=== PATIENT | female | born 1985 | race Hispanic/Latino ===

== ENCOUNTER 2016-11-14 19:02 | Emergency (ER) | payer MEDICAID ==
[2016-11-15] MEDS ORDERED: NORCO 5/325 PO ONE (00:19)
--- NOTE | 2016-11-15 00:23 | Emergency Department Report ---
ED ENT HPI - General Chief complaint: Dental/Oral Stated complaint: TOOTHACE Time Seen by Provider: 11/15/16 00:18 Source: patient Mode of arrival: Wheelchair Limitations: No Limitations - History of Present Illness Initial comments: 31-year-old female comes in with complaint of toothache for greater than 1 week. She admits that she has some pretty bad teeth that have been broken down to the gums. She cannot recall when the last time she seen a dentist. She denies any fever no chills. MD complaint: tooth pain - Related Data Previous Rx's Medication Instructions Recorded Last Taken Type Ciprofloxacin HCl [Ciprofloxacin 500 mg PO Q12HR #20 tab 01/17/16 Unknown Rx TAB] Ibuprofen [Motrin 600 MG tab] 600 mg PO Q8H PRN #30 tablet 01/17/16 Unknown Rx Clindamycin [Clindamycin CAP] 300 mg PO Q8H #30 cap 11/15/16 Unknown Rx Allergies Allergy/AdvReac Type Severity Reaction Status Date / Time No Known Allergies Allergy Unverified 01/16/16 21:14 ED Dental HPI - General Chief complaint: Dental/Oral Stated complaint: TOOTHACE Time Seen by Provider: 11/15/16 00:18 Source: patient Mode of arrival: Wheelchair Limitations: No Limitations - Related Data Previous Rx's Medication Instructions Recorded Last Taken Type Ciprofloxacin HCl [Ciprofloxacin 500 mg PO Q12HR #20 tab 01/17/16 Unknown Rx TAB] Ibuprofen [Motrin 600 MG tab] 600 mg PO Q8H PRN #30 tablet 01/17/16 Unknown Rx Clindamycin [Clindamycin CAP] 300 mg PO Q8H #30 cap 11/15/16 Unknown Rx Allergies Allergy/AdvReac Type Severity Reaction Status Date / Time No Known Allergies Allergy Unverified 01/16/16 21:14 ED Review of Systems ROS: Stated complaint: TOOTHACE Other details as noted in HPI Constitutional: denies: chills, fever ENT: throat pain ED Past Medical Hx - Past Medical History Additional medical history: Scoliosis - Surgical History Additional Surgical History: back - Social History Smoking Status: Never Smoker Substance Use Type: None - Medications Home Medications: Home Medications Medication Instructions Recorded Confirmed Last Taken Type Ciprofloxacin HCl [Ciprofloxacin 500 mg PO Q12HR #20 tab 01/17/16 Unknown Rx TAB] Ibuprofen [Motrin 600 MG tab] 600 mg PO Q8H PRN #30 tablet 01/17/16 Unknown Rx Clindamycin [Clindamycin CAP] 300 mg PO Q8H #30 cap 11/15/16 Unknown Rx ED Physical Exam - General Limitations: No Limitations General appearance: alert, in no apparent distress - Head Head exam: Present: atraumatic, normocephalic - Eye Eye exam: Present: normal appearance - Expanded ENT Exam Expanded Teeth exam: Present: fractured tooth # (multiple teeth eroded to the gums), gingival enlargement Throat exam: Negative: tonsillar erythema, tonsillomegaly - Neck Neck exam: Present: normal inspection, full ROM. Absent: tenderness ED Course Vital Signs 11/14/16 11/14/16 20:05 23:11 Temperature 98.6 F 98.4 F Pulse Rate 80 94 H Respiratory 18 18 Rate Blood Pressure 127/76 Blood Pressure 122/79 [Left] O2 Sat by Pulse 100 93 Oximetry ED Medical Decision Making - Medical Decision Making Patient has been evaluated by this provider in fast track. She has multiple multiple erosion of teeth all [address] patient on clindamycin will give her [place] and discharge her on ibuprofen for pain. Refer her to the community dentists she could have those teeth removed. Patient verbalized understanding Critical care attestation.: If time is entered above; I have spent that time in minutes in the direct care of this critically ill patient, excluding procedure time. ED Disposition Clinical Impression: Tooth ache, Tooth caries, Tooth absence Disposition: DISCHARGED TO HOME OR SELFCARE Is pt being admited?: No Does the pt Need Aspirin: No Instructions: Toothache (ED), Dental Caries (ED), Dental Abscess (ED) Additional Instructions: It's very important for her to be seen by dentist to have those teeth taken care of. Antibiotics as prescribed and pain medication when necessary for pain. Prescriptions: Clindamycin [Clindamycin CAP] 300 mg PO Q8H #30 cap Referrals: PRIMARY CARE, [Primary Care Provider] - 3-5 Days Forms: Work/School Release Form(ED)
[2016-11-15 00:47] VITALS: BP 126/80
== END 2016-11-15 00:47 | disposition home or self-care (01) ==
LOC: ED 19:02
DX: K04.7 Periapical abscess without sinus (principal); K02.9 Dental caries, unspecified; K08.89 Other specified disorders of teeth and supporting structures; M41.9 Scoliosis, unspecified
CPT/HCPCS: 99282

== ENCOUNTER 2019-04-13 02:09 | Emergency (ER) | payer MEDICAID ==
[2019-04-13 04:00] LABS: Amorphous Crystals,Urine Few; Bacteria,Urine 4+ /HPF (Negative); Bilirubin,Urine NEG (Negative); Blood,Urine SM (Negative); Color,Urine Amber (Yellow); Mucus,Urine 3+ /HPF; Urobilinogen,Urine < 2.0 mg/dL (<2.0)
[2019-04-13 04:24] LABS: Basophils # (Auto) 0.1 K/mm3 (0.0-0.1); Basophils % (Auto) 0.6 % (0.0-1.8); Eosinophils # (Auto) 0.1 K/mm3 (0.0-0.4); Eosinophils % (Auto) 0.7 % (0.0-4.3); Hematocrit 31.2 % (30.3-42.9); Hemoglobin 9.9 gm/dl (10.1-14.3); Lymphocytes # (Auto) 0.7 K/mm3 (1.2-5.4); Lymphocytes % (Auto) 7.2 % (13.4-35.0); Mean Corpuscular HGB Conc 32 % (30-34); Monocytes # (Auto) 0.9 K/mm3 (0.0-0.8); Monocytes % (Auto) 9.6 % (0.0-7.3); Platelet Count 208 K/mm3 (140-440); Red Blood Count 4.47 M/mm3 (3.65-5.03); Red Cell Distribution Width 17.2 % (13.2-15.2)
[2019-04-13 04:28] LABS: Mean Corpuscular Volume 70 fl (79-97)
[2019-04-13] MEDS ORDERED: NACL 0.9% 1000 ML 1,000 ML IV ONE (04:32)
[2019-04-13] MEDS ORDERED: ROCEPHIN/NS 1 GM/50 ML 1 GM/50 ML BAG IV ONE (04:32)
[2019-04-13] MEDS ORDERED: ZOFRAN IV ONE (04:32)
--- NOTE | 2019-04-13 04:40 | Emergency Department Report ---
ED N/V/D HPI - General Chief complaint: Abdominal Pain Stated complaint: GENERAL WEAKNESS Time Seen by Provider: 04/13/19 04:22 Source: patient, EMS Mode of arrival: Wheelchair Limitations: Physical Limitation - History of Present Illness Initial comments: Patient is a 33-year-old male who presents to the emergency room with complaints of nausea, vomiting, diarrhea that began 2 days ago. She states that emesis stopped yesterday but the diarrhea has continued. she is able to tolerate PO intake. She has associated generalized weakness. She states she has also had dysuria and urinary frequency for 2 days. she states she has mild suprapubic abdominal cramping but no pain. PMHx of scoliosis. no allergies to meds or daily meds. - Related Data Previous Rx's Medication Instructions Recorded Last Taken Type Ciprofloxacin HCl [Ciprofloxacin 500 mg PO Q12HR #20 tab 01/17/16 Unknown Rx TAB] Ibuprofen [Motrin 600 MG tab] 600 mg PO Q8H PRN #30 tablet 01/17/16 Unknown Rx Clindamycin [Clindamycin CAP] 300 mg PO Q8H #30 cap 11/15/16 Unknown Rx Ibuprofen [Motrin 600 MG tab] 600 mg PO Q8H PRN #30 tablet 11/15/16 Unknown Rx Ondansetron [Zofran Odt] 4 mg PO Q8HR PRN #10 tab.rapdis 04/13/19 Unknown Rx Sulfamethoxazole/Trimethoprim 1 each PO BID 14 Days #28 tablet 04/13/19 Unknown Rx [Bactrim DS TAB] Allergies Allergy/AdvReac Type Severity Reaction Status Date / Time No Known Allergies Allergy Unverified 01/16/16 21:14 ED Review of Systems ROS: Stated complaint: GENERAL WEAKNESS Other details as noted in HPI Comment: All other systems reviewed and negative ED Past Medical Hx - Past Medical History Previous Medical History?: Yes Additional medical history: Scoliosis wheelchair bound - Surgical History Past Surgical History?: Yes Additional Surgical History: back surgery - Social History Smoking Status: Never Smoker - Medications Home Medications: Home Medications Medication Instructions Recorded Confirmed Last Taken Type Ciprofloxacin HCl [Ciprofloxacin 500 mg PO Q12HR #20 tab 01/17/16 Unknown Rx TAB] Ibuprofen [Motrin 600 MG tab] 600 mg PO Q8H PRN #30 tablet 01/17/16 Unknown Rx Clindamycin [Clindamycin CAP] 300 mg PO Q8H #30 cap 11/15/16 Unknown Rx Ibuprofen [Motrin 600 MG tab] 600 mg PO Q8H PRN #30 tablet 11/15/16 Unknown Rx Ondansetron [Zofran Odt] 4 mg PO Q8HR PRN #10 tab.rapdis 04/13/19 Unknown Rx Sulfamethoxazole/Trimethoprim 1 each PO BID 14 Days #28 tablet 04/13/19 Unknown Rx [Bactrim DS TAB] ED Physical Exam - General Limitations: Physical Limitation General appearance: alert, in no apparent distress - Head Head exam: Present: atraumatic, normocephalic - Eye Eye exam: Present: normal appearance, PERRL - ENT ENT exam: Present: mucous membranes moist - Respiratory Respiratory exam: Present: normal lung sounds bilaterally. Absent: respiratory distress, wheezes, rales, rhonchi, stridor, chest wall tenderness, accessory muscle use, decreased breath sounds, prolonged expiratory - Cardiovascular Cardiovascular Exam: Present: regular rate, normal rhythm, normal heart sounds. Absent: systolic murmur, diastolic murmur, rubs, gallop - GI/Abdominal GI/Abdominal exam: Present: soft, normal bowel sounds. Absent: distended, tenderness, guarding, rebound, rigid - Back Exam Back exam: Absent: CVA tenderness (R), CVA tenderness (L) - Neurological Exam Neurological exam: Present: alert, oriented X3 - Psychiatric Psychiatric exam: Present: normal affect, normal mood - Skin Skin exam: Present: warm, dry, intact ED Course Vital Signs 04/13/19 04/13/19 03:05 07:12 Temperature 99.3 F 99.1 F Pulse Rate 118 H 67 Respiratory 16 16 Rate Blood Pressure 113/75 Blood Pressure 104/69 [Left] O2 Sat by Pulse 98 100 Oximetry ED Medical Decision Making - Lab Data Result diagrams: 04/13/19 03:56 04/13/19 03:56 Lab Results 04/13/19 04/13/19 04/13/19 Range/Units 03:37 03:56 03:56 WBC 9.4 (4.5-11.0) K/mm3 RBC 4.47 (3.65-5.03) M/mm3 Hgb 9.9 L (10.1-14.3) gm/dl Hct 31.2 (30.3-42.9) % MCV 70 L (79-97) fl MCH 22 L (28-32) pg MCHC 32 (30-34) % RDW 17.2 H (13.2-15.2) % Plt Count 208 (140-440) K/mm3 Lymph % (Auto) 7.2 L (13.4-35.0) % [place] % (Auto) 9.6 H (0.0-7.3) % Eos % (Auto) 0.7 (0.0-4.3) % Baso % (Auto) 0.6 (0.0-1.8) % Lymph # 0.7 L (1.2-5.4) K/mm3 [place] # 0.9 H (0.0-0.8) K/mm3 Eos # 0.1 (0.0-0.4) K/mm3 Baso # 0.1 (0.0-0.1) K/mm3 Seg Neutrophils % 81.9 H (40.0-70.0) % Seg Neutrophils # 7.7 (1.8-7.7) K/mm3 Sodium 139 (137-145) mmol/L Potassium 3.5 L (3.6-5.0) mmol/L Chloride 103.6 (98-107) mmol/L Carbon Dioxide 24 (22-30) mmol/L Anion Gap 15 mmol/L BUN 9 (7-17) mg/dL Creatinine 0.4 L (0.7-1.2) mg/dL Estimated GFR > 60 ml/min BUN/Creatinine Ratio 23 % Glucose 115 H (65-100) mg/dL Calcium 9.2 (8.4-10.2) mg/dL Total Bilirubin 0.20 (0.1-1.2) mg/dL AST 11 (5-40) units/L ALT 7 (7-56) units/L Alkaline Phosphatase 47 (35-129) units/L Total Protein 7.6 (6.3-8.2) g/dL Albumin 4.1 (3.9-5) g/dL Albumin/Globulin Ratio 1.2 % Lipase 36 (13-60) units/L HCG, Qual (Negative) Urine Color [place] (Yellow) Urine Turbidity Cloudy (Clear) Urine pH 5.0 (5.0-7.0) Ur Specific [place] 1.025 (1.003-1.030) Urine Protein 30 mg/dl (Negative) mg/dL Urine Glucose (UA) Neg (Negative) mg/dL Urine Ketones Neg (Negative) mg/dL Urine Blood Sm (Negative) Urine Nitrite Pos (Negative) Urine Bilirubin Neg (Negative) Urine Urobilinogen < 2.0 (<2.0) mg/dL Ur Leukocyte Esterase Mod (Negative) Urine WBC (Auto) 129.0 H (0.0-6.0) /HPF Urine RBC (Auto) 5.0 (0.0-6.0) /HPF U Epithel Cells (Auto) 4.0 (0-13.0) /HPF Urine Bacteria (Auto) 4+ (Negative) /HPF Amorphous Crystals Few Urine Mucus 3+ /HPF 04/13/19 Range/Units 03:56 WBC (4.5-11.0) K/mm3 RBC (3.65-5.03) M/mm3 Hgb (10.1-14.3) gm/dl Hct (30.3-42.9) % MCV (79-97) fl MCH (28-32) pg MCHC (30-34) % RDW (13.2-15.2) % Plt Count (140-440) K/mm3 Lymph % (Auto) (13.4-35.0) % [place] % (Auto) (0.0-7.3) % Eos % (Auto) (0.0-4.3) % Baso % (Auto) (0.0-1.8) % Lymph # (1.2-5.4) K/mm3 [place] # (0.0-0.8) K/mm3 Eos # (0.0-0.4) K/mm3 Baso # (0.0-0.1) K/mm3 Seg Neutrophils % (40.0-70.0) % Seg Neutrophils # (1.8-7.7) K/mm3 Sodium (137-145) mmol/L Potassium (3.6-5.0) mmol/L Chloride (98-107) mmol/L Carbon Dioxide (22-30) mmol/L Anion Gap mmol/L BUN (7-17) mg/dL Creatinine (0.7-1.2) mg/dL Estimated GFR ml/min BUN/Creatinine Ratio % Glucose (65-100) mg/dL Calcium (8.4-10.2) mg/dL Total Bilirubin (0.1-1.2) mg/dL AST (5-40) units/L ALT (7-56) units/L Alkaline Phosphatase (35-129) units/L Total Protein (6.3-8.2) g/dL Albumin (3.9-5) g/dL Albumin/Globulin Ratio % Lipase (13-60) units/L HCG, Qual Negative (Negative) Urine Color (Yellow) Urine Turbidity (Clear) Urine pH (5.0-7.0) Ur Specific [place] (1.003-1.030) Urine Protein (Negative) mg/dL Urine Glucose (UA) (Negative) mg/dL Urine Ketones (Negative) mg/dL Urine Blood (Negative) Urine Nitrite (Negative) Urine Bilirubin (Negative) Urine Urobilinogen (<2.0) mg/dL Ur Leukocyte Esterase (Negative) Urine WBC (Auto) (0.0-6.0) /HPF Urine RBC (Auto) (0.0-6.0) /HPF U Epithel Cells (Auto) (0-13.0) /HPF Urine Bacteria (Auto) (Negative) /HPF Amorphous Crystals Urine Mucus /HPF Vital Signs 04/13/19 04/13/19 03:05 07:12 Temperature 99.3 F 99.1 F Pulse Rate 118 H 67 Respiratory 16 16 Rate Blood Pressure 113/75 Blood Pressure 104/69 [Left] O2 Sat by Pulse 98 100 Oximetry - Medical Decision Making Patient is a 33-year-old male who presents to the emergency room with complaints of nausea, vomiting, diarrhea that began 2 days ago. She states that emesis stopped yesterday but the diarrhea has continued. she is able to tolerate PO intake. She has associated generalized weakness. She states she has also had dysuria and urinary frequency for 2 days. she states she has mild suprapubic abdominal cramping but no pain. PMHx of scoliosis. no allergies to meds or daily meds. labs WNL. UA shows evidence of a UTI with WBCs, leukocyte esterase and nitrites. pt given ceftriaxone, IVF, and zofran while in the ED. vitals improved after medications. no abd tenderness on exam. no episodes of emesis in the ED. pt tolerating PO intake without difficulty. pt given prescription for bactrim and zofran. discussed to please take medication as prescribed. Continue drinking plenty of fluids. Eat a bland diet. Follow-up with primary care doctor the next 2-3 days. Return to the emergency room for any new or worsening symptoms. Critical care attestation.: If time is entered above; I have spent that time in minutes in the direct care of this critically ill patient, excluding procedure time. ED Disposition Clinical Impression: UTI (urinary tract infection) Qualifiers: Urinary tract infection type: acute cystitis Hematuria presence: with hematuria Qualified Code(s): N30.01 - Acute cystitis with hematuria Diarrhea Qualifiers: Diarrhea type: unspecified type Qualified Code(s): R19.7 - Diarrhea, unspecified Disposition: TO HOME OR SELFCARE Is pt being admited?: No Does the pt Need Aspirin: No Condition: Stable Instructions: Urinary Tract Infection in Women (ED), Acute Diarrhea (ED) Additional Instructions: Please take medication as prescribed. Continue drinking plenty of fluids. Eat a bland diet. Follow-up with primary care doctor the next 2-3 days. Return to the emergency room for any new or worsening symptoms. Prescriptions: Sulfamethoxazole/Trimethoprim [Bactrim DS TAB] 1 each PO BID 14 Days #28 tablet Ondansetron [Zofran Odt] 4 mg PO Q8HR PRN #10 tab.rapdis PRN Reason: Nausea Referrals: JEANNE MCKENZIE MD [Primary Care Provider] - 2-3 Days Time of Disposition: 06:38 Print Language: LIBYAN
[2019-04-13 04:44] LABS: Alanine Aminotransferase 7 units/L (7-56); Albumin 4.1 g/dL (3.9-5); BUN/Creatinine Ratio 23; Blood Urea Nitrogen 9 mg/dL (7-17); Calcium 9.2 mg/dL (8.4-10.2); Hemolysis Index 1
[2019-04-13] MEDS ORDERED: IBUPROFEN PO ONE (05:42)
[2019-04-13 07:13] VITALS: BP 104/69
== END 2019-04-13 07:12 | disposition home or self-care (01) ==
LOC: ED 02:09
DX: N39.0 Urinary tract infection, site not specified (principal); R19.7 Diarrhea, unspecified; R11.2 Nausea with vomiting, unspecified; Z98.890 Other specified postprocedural states
CPT/HCPCS: 36415; 80053; 81001; 83690; 84703; 85025; 87086; 96365; 96375; 99284; J0696; J2405; J7030

== ENCOUNTER 2019-05-07 08:28 | Emergency (ER) | payer MEDICAID ==
[2019-05-07] MEDS ORDERED: NACL 0.9% 500 ML 500 ML IV ONE (08:47)
[2019-05-07] MEDS ORDERED: TYLENOL PO ONE (09:17)
[2019-05-07] MEDS ORDERED: NACL 0.9% 1000 ML 1,000 ML IV ONE (09:17)
--- NOTE | 2019-05-07 09:21 | Emergency Department Report ---
ED General Adult HPI - General Chief complaint: Fever Stated complaint: FEVER/3 DAYS 102.9 Time Seen by Provider: 05/07/19 09:13 Source: patient, EMS Mode of arrival: Wheelchair Limitations: No Limitations - History of Present Illness Initial comments: Patient is 33 years old female with history of scoliosis. Patient presented to the ER complaining of 3 day history of fever, generalized weakness and bilateral flank pain and increase in urinary frequency. Patient is slightly lethargic but able to answer questions appropriately. Looks really dehydrated. Sepsis protocol immediately initiated. Patient is started on normal saline, Zosyn and given Tylenol for fever. - Related Data Previous Rx's Medication Instructions Recorded Last Taken Type Ciprofloxacin HCl [Ciprofloxacin 500 mg PO Q12HR #20 tab 01/17/16 Unknown Rx TAB] Ibuprofen [Motrin 600 MG tab] 600 mg PO Q8H PRN #30 tablet 01/17/16 Unknown Rx Clindamycin [Clindamycin CAP] 300 mg PO Q8H #30 cap 11/15/16 Unknown Rx Ibuprofen [Motrin 600 MG tab] 600 mg PO Q8H PRN #30 tablet 11/15/16 Unknown Rx Ondansetron [Zofran Odt] 4 mg PO Q8HR PRN #10 tab.rapdis 04/13/19 Unknown Rx Sulfamethoxazole/Trimethoprim 1 each PO BID 14 Days #28 tablet 04/13/19 Unknown Rx [Bactrim DS TAB] Allergies Allergy/AdvReac Type Severity Reaction Status Date / Time No Known Allergies Allergy Verified 05/07/19 09:14 ED Review of Systems ROS: Stated complaint: FEVER/3 DAYS 102.9 Other details as noted in HPI Comment: All other systems reviewed and negative Constitutional: chills, fever ENT: denies: throat pain, dental pain, hearing loss, congestion Respiratory: denies: cough, orthopnea, shortness of breath, SOB with exertion, SOB at rest Cardiovascular: palpitations. denies: chest pain Gastrointestinal: nausea. denies: abdominal pain, vomiting, diarrhea, constipation, hematemesis, melena, hematochezia Genitourinary: dysuria, frequency Musculoskeletal: back pain Neurological: weakness. denies: headache ED Past Medical Hx - Past Medical History Additional medical history: Scoliosis wheelchair bound - Surgical History Additional Surgical History: back surgery - Social History Smoking Status: Never Smoker Substance Use Type: None - Medications Home Medications: Home Medications Medication Instructions Recorded Confirmed Last Taken Type Ciprofloxacin HCl [Ciprofloxacin 500 mg PO Q12HR #20 tab 01/17/16 Unknown Rx TAB] Ibuprofen [Motrin 600 MG tab] 600 mg PO Q8H PRN #30 tablet 01/17/16 Unknown Rx Clindamycin [Clindamycin CAP] 300 mg PO Q8H #30 cap 11/15/16 Unknown Rx Ibuprofen [Motrin 600 MG tab] 600 mg PO Q8H PRN #30 tablet 11/15/16 Unknown Rx Ondansetron [Zofran Odt] 4 mg PO Q8HR PRN #10 tab.rapdis 04/13/19 Unknown Rx Sulfamethoxazole/Trimethoprim 1 each PO BID 14 Days #28 tablet 04/13/19 Unknown Rx [Bactrim DS TAB] ED Physical Exam - General Limitations: No Limitations General appearance: alert, in no apparent distress - Head Head exam: Present: atraumatic, normocephalic, normal inspection - ENT ENT exam: Present: mucous membranes dry - Neck Neck exam: Present: normal inspection, full ROM. Absent: tenderness, meningismus, lymphadenopathy, thyromegaly - Respiratory Respiratory exam: Present: normal lung sounds bilaterally - Cardiovascular Cardiovascular Exam: Present: tachycardia - GI/Abdominal GI/Abdominal exam: Present: soft, normal bowel sounds. Absent: distended, tenderness, guarding, rebound, rigid, organomegaly, mass, bruit, pulsatile mass, hernia - Extremities Exam Extremities exam: Present: normal inspection - Back Exam Back exam: Present: normal inspection, CVA tenderness (R), CVA tenderness (L) - Neurological Exam Neurological exam: Present: alert, oriented X3 - Psychiatric Psychiatric exam: Present: normal mood - Skin Skin exam: Present: dry, normal color ED Course Vital Signs 05/07/19 08:38 Temperature 100.8 F H Pulse Rate 125 H Respiratory 16 Rate Blood Pressure 122/74 O2 Sat by Pulse 99 Oximetry ED Medical Decision Making - Lab Data Result diagrams: 05/07/19 09:06 05/07/19 09:06 - Radiology Data Radiology results: report reviewed Chest x-ray is unremarkable. - Medical Decision Making Patient is 33 years old female with history of scoliosis. Patient presented to the ER complaining of 3 day history of fever, generalized weakness and bilateral flank pain and increase in urinary frequency. Patient is slightly lethargic but able to answer questions appropriately. Looks really dehydrated. Sepsis protocol immediately initiated. Patient is started on normal saline, Zosyn and given Tylenol for fever. Patient received normal saline, Zosyn and Tylenol. Patient stated that she is feeling much better. Lactic acid now is 0.8. Labs reviewed and showed a UTI. Patient will be started on ciprofloxacin twice a day for 7 days and advised to return to the ER if symptoms are not improved. Patient also advised to follow up with her primary care physician in the next 2-3 days. Critical care attestation.: If time is entered above; I have spent that time in minutes in the direct care of this critically ill patient, excluding procedure time. ED Disposition Clinical Impression: UTI (urinary tract infection) Disposition: TO HOME OR SELFCARE Is pt being admited?: No Condition: Stable Instructions: Urinary Tract Infection in Women (ED), Fever in Adults (ED) Referrals: JEANNE MCKENZIE MD [Primary Care Provider] - 3-5 Days
[2019-05-07 09:35] LABS: Albumin 4.5 g/dL (3.9-5); BUN/Creatinine Ratio 23; Blood Urea Nitrogen 9 mg/dL (7-17); Calcium 9.1 mg/dL (8.4-10.2); Hemolysis Index 0
[2019-05-07 09:38] LABS: Alanine Aminotransferase < 5 units/L (7-56)
[2019-05-07 09:38] LABS: Bacteria,Urine 2+ /HPF (Negative); Bilirubin,Urine NEG (Negative); Blood,Urine SM (Negative); Color,Urine Yellow (Yellow); Mucus,Urine FEW /HPF; Protein,Urine <15 mg/dL mg/dL (Negative)
[2019-05-07 09:41] LABS: INR 1.08 (0.87-1.13)
[2019-05-07 09:42] LABS: Basophils # (Auto) 0.1 K/mm3 (0.0-0.1); Basophils % (Auto) 0.8 % (0.0-1.8); Eosinophils % (Auto) 0.4 % (0.0-4.3); Hematocrit 31.3 % (30.3-42.9); Hemoglobin 9.6 gm/dl (10.1-14.3); Lymphocytes # (Auto) 0.6 K/mm3 (1.2-5.4); Lymphocytes % (Auto) 8.3 % (13.4-35.0); Mean Corpuscular HGB Conc 31 % (30-34); Monocytes # (Auto) 0.5 K/mm3 (0.0-0.8); Monocytes % (Auto) 7.3 % (0.0-7.3); Platelet Count 496 K/mm3 (140-440); Red Blood Count 4.48 M/mm3 (3.65-5.03)
[2019-05-07 09:53] LABS: Mean Corpuscular Volume 70 fl (79-97)
[2019-05-07] MEDS ORDERED: ZOSYN/NS 3.375GM/50ML 3.375 GM/50 ML BAG IV ONE (10:00)
--- NOTE | 2019-05-07 10:15 | XRay Report ---
CHEST 1 VIEW INDICATION / CLINICAL INFORMATION: possible Sepsis,FEVER,WEAKNESS. COMPARISON: None available. FINDINGS: SUPPORT DEVICES: None. HEART / MEDIASTINUM: No significant abnormality. LUNGS / PLEURA: No significant pulmonary or pleural abnormality. No pneumothorax. ADDITIONAL FINDINGS: Surgical hardware in the thoracolumbar spine IMPRESSION: No acute pulmonary or pleural abnormality. Signer Name: Charles Taylor MD FACR Signed: 05/07/2019 10:11 AM Workstation Name: [id number]
[2019-05-07 13:07] LABS: Amphetamine Screen,Urine PRESUMPTIVE NEGATIVE; Benzodiazepines Screen,Urine PRESUMPTIVE NEGATIVE; Cannabinoid Screen,Urine PRESUMPTIVE NEGATIVE; Cocaine Screen,Urine PRESUMPTIVE NEGATIVE; Methadone Screen,Urine PRESUMPTIVE NEGATIVE; Opiate Screen,Urine PRESUMPTIVE NEGATIVE
[2019-05-07 13:22] VITALS: BP 115/68
== END 2019-05-07 13:20 | disposition home or self-care (01) ==
LOC: ED 08:28
DX: N39.0 Urinary tract infection, site not specified (principal); Z79.899 Other long term (current) drug therapy
CPT/HCPCS: 36415; 71045; 80053; 80307; 81001; 82140; 82805; 85025; 85610; 87040; 87086; 93005; 93010; 96365; 99285; J2543; J7030; J7040